=== PATIENT | female | born 1965 | race Hispanic/Latino ===

== ENCOUNTER → 2020-07-14 | Outpatient (CLI) | payer OTHER | END | disposition home or self-care (01) | LOC: RAH 15:13 | PROVIDERS: ATTEND Otolaryngology Plastic Surgery within the Head & Neck | DX: R22.1 Localized swelling, mass and lump, neck (principal) | CPT/HCPCS: 76536 ==

== ENCOUNTER 2025-03-08 20:32 | Emergency (ER) | payer BC, SELFPAY ==
[~2025-03-08] VITALS: Ht 152.4 cm; Wt 90.7 kg
--- NOTE | 2025-03-08 20:45 | ERN ---
ED Note History of Present Illness Stated Complaint: FELL/ SWOLLEN Time Seen by MD: 20:37 Dictation: PATIENT IS A 59-YEAR-OLD FEMALE COMING IN TODAY BILATERAL KNEE PAIN STATUS POST A SLIP FALL AT A LOCAL STORE ON FRIDAY. SHE STATES SHE HAS BEEN AMBULATORY SINCE THE FALL NO BLOOD THINNERS NO LOC. SHE STATES THE AMBULANCE CAME AND CHECKED ON HER HOWEVER SHE HAS REFUSED TRANSPORTATION AT THAT TIME. ADDITIONALLY SHE DID NOT GO SEE HER PRIMARY CARE DOCTOR YESTERDAY OR TODAY DUE TO THE KNEE PAIN. PATIENT IS AMBULATORY TO TRIAGE MILD ECCHYMOSIS NOTED TO BOTH KNEES. Allergies: Coded Allergies: No Known Drug Allergies (Unverified Allergy, Unknown, 03/08/25) Past Medical History History: Not Applicable RN Note Reviewed/Agreed w/PFSH: Yes Review of System Dictation CONSTITUTIONAL: NEGATIVE EXCEPT FOR HPI HEAD/FACE: NEGATIVE EXCEPT FOR HPI EENT: NEGATIVE EXCEPT FOR HPI RESPIRATORY: NEGATIVE EXCEPT FOR HPI GASTROINTESTINAL/ABDOMINAL: NEGATIVE EXCEPT FOR HPI GENITOURINARY: NEGATIVE EXCEPT FOR HPI MUSCULOSKELETAL: NEGATIVE EXCEPT FOR HPI BILATERAL KNEE PAIN INTEGUMENTARY: NEGATIVE EXCEPT FOR HPI NEUROLOGICAL/PSYCH: NEGATIVE EXCEPT FOR HPI HEMATOLOGIC/LYMPHATIC: NEGATIVE EXCEPT FOR HPI ALL SYSTEMS NEGATIVE, EXCEPT NOTED ABOVE. 13 POINT REVIEW OF SYSTEMS ASSESSED AND ALL NEGATIVE EXCEPT FOR ABOVE. Initial Vital Sign VS Vital Signs Date Time Temp Pulse Resp B/P (MAP) Pulse Ox O2 Delivery O2 Flow Rate FiO2 03/08/25 21:01 99.0 82 18 144/84 96 Room Air 0 03/08/25 21:32 21 Physical Exam Dictation VITAL SIGNS REVIEWED GENERAL APPEARANCE: ALERT, ORIENTED X 3, MILD ACUTE DISTRESS, WELL DEVELOPED, NOURISHED. OBESE HEAD AND FACE: NON-TRAUMATIC. EYES: PERRL, PINK CONJUNCTIVAS, EYELID NO TRAUMA, ANTERIOR CHAMBER WITH ARCUS SENILIS. EARS: PINNAS INTACT AND NO SIGNS OF TRAUMA OR ERYTHEMA EAR CANALS CLEAR AND NO DISCHARGE TM NO ERYTHEMA NOSE: NO DISCHARGE, NO BLEEDING. OROPHARYNX: MOUTH NORMAL, TONGUE PINK, PHARYNX CLEAR,NO ERYTHEMA, TONSILS NO EXUDATES, NO ABSCESSES NOTED, MUCOUS MEMBRANE MOIST NECK: SUPPLE, NON-TENDER, NO THYROMEGALY, NO MASSES, NO JVD, NO BRUITS BREAST:DEFERRED CHEST:NO TENDERNESS, NO CREPITUS, NO PARADOXICAL MOVEMENT, NO RETRACTIONS LUNGS:CLEAR, WELL-VENTILATED, SYMMETRIC, NO RALES, NO WHEEZING, NO RHONCHI, NO STRIDOR, GOOD BREATH SOUNDS BILATERALLY HEART: REGULAR RATE, REGULAR RHYTHM, NO MURMUR, NO GALLOPS VASCULAR: NO PERIPHERAL EDEMA, ABDOMEN: SOFT, POSITIVE BOWEL SOUNDS, NONDISTENDED, NO GUARDING, NONTENDER, NO REBOUND, NO MASSES NO HEPATOMEGALY, NO SPLENOMEGALY, NO SRINIVASAN'S SIGN, NO HERNIAS. RECTAL: DEFERRED GENITAL: DEFERRED NEUROLOGICAL: NORMAL SPEECH, MOTOR FUNCTION INTACT, SENSORY FUNCTION INTACT MUSCULOSKELETAL: NECK NONTENDER, FULL RANGE OF MOTION, BACK NONTENDER, FULL RANGE OF MOTION, EXTREMITIES: BILATERAL ANTERIOR KNEES WITH MILD ECCHYMOSIS TENDERNESS. FULL RANGE OF MOTION NOTED. FULL WEIGHT-BEARING TO TRIAGE ROOM. NO SHORTENING OR ROTATION NO HIP OR PELVIC PAIN. SKIN: COLOR PINK, DRY, NO TURGOR, NO RASH, NO LACERATIONS, NO ABRASIONS, NO CONTUSIONS. LYMPHATIC: DEFERRED Results (Laboratory/Radiology) Laboratory/Radiology 2139/BILATERAL KNEE X-RAYS NEGATIVE Labs Reviewed?: Yes ED Course ED Course Orders Procedure Category Date Status Time Knee 3vws Lt RAD 03/08/25 Taken 20:43 Knee 3vws Rt RAD 03/08/25 Taken 20:43 Acetaminophen 500mg PHA 03/08/25 Complete Tab (Tylenol 500mg T 21:00 Current Medications Medications (Trade) Dose Ordered Sig/Silvio Route PRN Reason Start Time Stop Time Status Last Admin Dose Admin Acetaminophen (TYLenol 500MG TAB) 1,000 mg ONCE ONCE PO 03/08/25 21:00 03/08/25 21:04 DC 03/08/25 21:15 Vital Signs Date Time Temp Pulse Resp B/P (MAP) Pulse Ox O2 Delivery O2 Flow Rate FiO2 03/08/25 21:32 99.0 81 18 142/80 99 Room Air* 0 21 03/08/25 21:01 99.0 82 18 144/84 96 Room Air 0 Medical Decision Making [facility] 2139/MEDICAL DISCHARGE MAKING BASED ON X-RAYS OF BILATERAL KNEES NO FRACTURES PATIENT DISCHARGED HOME WITH CONTUSIONS OF KNEES GIVEN IBUPROFEN AND TOLD TO SEE HER PRIMARY CARE DOCTOR IN 1-2 DAYS FOR MANAGEMENT FOLLOW UP DX & DISP Disposition: Discharge Departure Impression: Primary Impression: Contusion of knee, left Additional Impressions: Contusion of knee, right, Fall Condition: Stable Scripts Ibuprofen (Ibuprofen 800 mg Tab) 800 Mg Tab 800 MG PO Q8H PRN for fever or pain, #30 TAB 0 Refills Prov: SANTOS AMIN NP 03/08/25 Additional Instructions: FOLLOW-UP WITH PRIMARY CARE PROVIDER IN 1 TO 2 DAYS. TAKE MEDICATIONS DIRECTED HERE IN THE EMERGENCY ROOM. OKAY TO CONTINUE HOME MEDICATIONS UNLESS OTHERWISE DISCUSSED DURING YOUR VISIT IN THE EMERGENCY ROOM TODAY. RETURN TO YOUR NEAREST EMERGENCY ROOM IF SYMPTOMS WORSEN OR IF THERE IS NO IMPROVEMENT. CALL 911 IF YOU NEED IMMEDIATE ASSISTANCE. TAKE TYLENOL OR MOTRIN [id number] NEEDED AND IF NO CONTRAINDICATIONS ARE PRESENT. INCREASE ORAL HYDRATION. A WOUND CULTURE OR URINE CULTURE WAS ORDERED HERE IN THE EMERGENCY ROOM DEPARTMENT PLEASE FOLLOW-UP WITH PRIMARY CARE PROVIDER AND ADVISE THEM TO GET REPEAT PORTS FROM OUR FACILITY. IF YOU HAD ANY STALIN WRAP/SPLINTS THAT WERE APPLIED HERE, PLEASE DO NOT REMOVE THEM UNTIL YOU SEE YOUR PRIMARY CARE OR SPECIALTY. WARM COMPRESSES TO PAIN THREE TO 4 TIMES A DAY. TAKE IBUPROFEN NEEDED FOR PAIN WITH FOOD. DIET AND ACTIVITY TOLERATED, SEE YOUR PRIMARY CARE DOCTOR FOR FOLLOW UP AND MANAGEMENT Referrals: DENNIS MONAHAN DO (PCP) Time of Disposition: 21:40 I have reviewed the case, and I agree with, Diagnosis and Plan SANTOS AMIN NP Mar 08, 2025 20:44
[2025-03-08] MEDS: acetaMINOPHEN 500 MG TABLET PO ONE (21:15)
[2025-03-08 21:32] VITALS: BP 142/80; PULSE 81; RESP 18; TEMP 99; O2SAT 99
[2025-03-08] MEDS ORDERED: IBUP-2077 PO (21:41)
--- NOTE | 2025-03-09 10:55 | HMCIMG ---
KNEE 3VWS LT HISTORY: Knee pain COMPARISON: None TECHNIQUE: 3 images of left knee were obtained. FINDINGS: There is no acute displaced fracture or dislocation. Degenerative changes are seen. IMPRESSION: 1. Findings as described above.
--- NOTE | 2025-03-09 10:55 | HMCIMG ---
KNEE 3VWS RT HISTORY: Knee pain COMPARISON: None TECHNIQUE: 3 images of right knee were obtained. FINDINGS: There is no acute displaced fracture or dislocation. Mild degenerative changes are seen. IMPRESSION: 1. Findings as described above.
== END 2025-03-08 22:03 | disposition home or self-care (01) ==
LOC: EDH 20:32
DX: S80.02XA Contusion of left knee, initial encounter (principal); S80.01XA Contusion of right knee, initial encounter; W01.0XXA Fall on same level from slipping, tripping and stumbling without subsequent striking against object, initial encounter; Y93.89 Activity, other specified; Y92.89 Other specified places as the place of occurrence of the external cause; Y99.8 Other external cause status
CPT/HCPCS: 73562; 99284